=== PATIENT | male | born 1965 | race Caucasian/White ===

== ENCOUNTER 2020-04-29 09:26 | Emergency (ER) | payer SELFPAY ==
[2020-04-29 11:03] LABS: HEMATOCRIT 47.1 % (39.0-50.0); HEMOGLOBIN 15.4 g/dl (14.0-18.0); IMMATURE GRANULOCYTES 0.4 % (0.0-5.0); MEAN CELL VOLUME 89.7 fL CALC (80.0-100.0); MEAN CORPUSCULAR HGB 29.3 pG CALC (26.0-32.0); MEAN CORPUSCULAR HGB CONC 32.7 g/dL CAL (32.0-36.0); NEUT# 6.72 thou/uL (1.82-7.42); RED BLOOD COUNT 5.25 mill/uL (4.70-6.10); RED CELL DISTRI WIDTH 13.4 % (11.5-15.5)
[2020-04-29 11:23] LABS: ANION GAP 10 (6-22 (CALC)); BUN 8 mg/dL (9-20); BUN/CREATININE RATIO 11 (12-20 (CALC)); CARBON DIOXIDE 26 mmol/l (22-30); CHLORIDE 104 mmol/l (95-108); CREATININE 0.8 mg/dL (0.7-1.3); GFR > 60 ML/MIN (>=60 (CALC)); GFR FOR AFR.AMER. > 60 ML/MIN (>=60 (CALC)); POTASSIUM 4.3 mmol/l (3.5-5.1); SODIUM 136 mmol/l (137-146)
[2020-04-29 11:36] LABS: C-REACTIVE PROTEIN 1.2 mg/dL (0-0.9)
[2020-04-29 12:28] VITALS: BP 122/72
== END 2020-04-29 12:35 | disposition home or self-care (01) | DRG 313 ==
LOC: ED 09:26
PROVIDERS: Family Medicine
DX: R07.9 Chest pain, unspecified (principal); R05 Cough; F17.210 Nicotine dependence, cigarettes, uncomplicated; Z20.828 Contact with and (suspected) exposure to other viral communicable diseases

== ENCOUNTER 2021-02-14 20:19 | Emergency (ER) | payer OTHER ==
[~2021-02-14] VITALS: Ht 160 cm; Wt 79.5 kg
[2021-02-14 21:09] LABS: URINE BILIRUBIN - DIPSTICK NEGATIVE (NEGATIVE); URINE BLOOD DIPSTICK NEGATIVE (NEGATIVE); URINE COLOR YELLOW; URINE GLUCOSE - DIPSTICK NEGATIVE (NEGATIVE); URINE KETONE NEGATIVE (NEGATIVE); URINE LEUK ESTERASE NEGATIVE (NEGATIVE); URINE PROTEIN - DIPSTICK NEGATIVE (NEG-TRACE); URINE SPECIFIC GRAVITY <=1.005; URINE UROBILINOGEN - DIPSTICK 0.2 E.U./dL (0.2)
[2021-02-14 21:10] LABS: HEMATOCRIT 46.4 % (39.0-50.0); HEMOGLOBIN 15.2 g/dl (14.0-18.0); IMMATURE GRANULOCYTES 0.3 % (0.0-5.0); MEAN CELL VOLUME 90.1 fL CALC (80.0-100.0); MEAN CORPUSCULAR HGB 29.5 pG CALC (26.0-32.0); MEAN CORPUSCULAR HGB CONC 32.8 g/dL CAL (32.0-36.0); NEUT# 7.13 thou/uL (1.82-7.42); RED BLOOD COUNT 5.15 mill/uL (4.70-6.10); RED CELL DISTRI WIDTH 13.6 % (11.5-15.5)
[2021-02-14 21:11] LABS: URINE NITRITE - DIPSTICK NEGATIVE (Negative)
[2021-02-14 21:26] LABS: ALBUMIN 4.6 g/dL (3.2-5.0); ALKALINE PHOSPHATASE 56 u/l (38-126); BILIRUBIN, TOTAL 0.6 mg/dL (0.0-1.4); BUN 5 mg/dL (9-20); BUN/CREATININE RATIO 7 (12-20 (CALC)); CARBON DIOXIDE 22 mmol/l (22-30); CREATININE 0.8 mg/dL (0.7-1.3); ETHYL ALCOHOL 139 mg/dl (0-30); GFR > 60 ML/MIN (>=60 (CALC)); GFR FOR AFR.AMER. > 60 ML/MIN (>=60 (CALC)); MAGNESIUM 1.9 mg/dL (1.6-2.3); POTASSIUM 4.1 mmol/l (3.5-5.1); SGOT/AST 21 u/l (17-59); SODIUM 137 mmol/l (137-146); TOTAL PROTEIN 7.2 g/dL (6.3-8.2)
[2021-02-14 21:27] LABS: ANION GAP 15 (6-22 (CALC)); CHLORIDE 104 mmol/l (95-108)
[2021-02-14] MEDS ORDERED: LEXAPRO10 MG PO (21:47)
[2021-02-14 22:12] VITALS: BP 110/66
== END 2021-02-14 22:12 | disposition home or self-care (01) | DRG 881 ==
LOC: ED 20:19
PROVIDERS: Family Medicine
DX: F32.9 Major depressive disorder, single episode, unspecified (principal); F10.129 Alcohol abuse with intoxication, unspecified; F17.210 Nicotine dependence, cigarettes, uncomplicated
CPT/HCPCS: J2060